=== PATIENT | female | born 1965 ===

== ENCOUNTER 2022-01-18 06:19 | Day surgery (SDC) | payer OTHER ==
[~2022-01-18 06:19] MED LIST: SYNTHROID137 MCG PO
== END 2022-01-18 12:35 | disposition home or self-care (01) ==
LOC: CIR.AMB 06:19
PROVIDERS: ATTEND Obstetrics & Gynecology
DX: N95.0 Postmenopausal bleeding (principal); R93.89 Abnormal findings on diagnostic imaging of other specified body structures; D25.9 Leiomyoma of uterus, unspecified; N85.01 Benign endometrial hyperplasia; Z91.040 Latex allergy status; I95.9 Hypotension, unspecified; E03.9 Hypothyroidism, unspecified; Z20.822 Contact with and (suspected) exposure to COVID-19